=== PATIENT | female | born 1940 | race Caucasian/White ===

== ENCOUNTER 2018-07-07 11:03 | Outpatient (CLI) | payer MEDICARE, BC ==
[2018-07-07] MEDS ORDERED: LEVO25TA2 PO (12:01)
[2018-07-07] MEDS ORDERED: ACET-76 PO (12:01)
[2018-07-07] MEDS ORDERED: ATOR10TA PO (12:01)
[2018-07-07] MEDS ORDERED: CHOL3000 PO (12:01)
[2018-07-07] MEDS ORDERED: LOSA25TA25 PO (12:01)
[2018-07-07] MEDS ORDERED: UBID100C24 PO (12:01)
[2018-07-07] MEDS ORDERED: MAGNESIUM PO (12:01)
[2018-07-07] MEDS ORDERED: VITAMIN B6 PO (12:01)
[2018-07-07] MEDS ORDERED: FOLIC ACID PO (12:01)
[2018-07-07] MEDS ORDERED: VITA400C43 PO (12:01)
[2018-07-07] MEDS ORDERED: POTA99TA3 PO (12:01)
[2018-07-07] MEDS ORDERED: CYCL-259 PO (12:01)
[2018-07-07] MEDS ORDERED: DESO15CR21 TP (12:01)
[2018-07-07] MEDS ORDERED: CYAN1TAB29 PO (12:01)
[2018-07-07 12:23] LABS: MD NO; MEAN CORPUSCULAR HEMOGLOBIN 33.4 pg (27.0-34.8); MEAN CORPUSCULAR HGB CONC 34.3 g/dL (32.4-35.8)
[2018-07-07 12:41] LABS: BASOPHILS # (AUTO) 0.03 x10^3/uL (0-0.1); BASOPHILS % (AUTO) 1 % (0-1); EOSINOPHILS # (AUTO) 0.09 x10^3/uL (0-0.4); EOSINOPHILS % (AUTO) 2 % (1-7); LYMPHOCYTES # (AUTO) 1.25 x10^3/uL (1-3.4); LYMPHOCYTES % (AUTO) 21 % (22-44); MEAN CORPUSCULAR VOLUME 97.5 fL (80-100); MEAN PLATELET VOLUME 7.5 fL (7.4-10.4); MONOCYTES # (AUTO) 0.43 x10^3/uL (0.2-0.8); MONOCYTES % (AUTO) 7 % (2-9); NEUTROPHILS # (AUTO) 4.18 x10^3/uL (1.8-6.8); NEUTROPHILS % (AUTO) 70 % (42-75); PLATELET COUNT 243 x10^3/uL (130-400); RED BLOOD COUNT 4.26 x10^6/uL (3.82-5.3); RED CELL DISTRIBUTION WIDTH 13.8 % (9.6-15.2)
[2018-07-07 13:34] LABS: ALBUMIN 3.4 g/dL (3.4-5.0); CHLORIDE 108 mmol/L (98-107)
[2018-07-07 13:45] LABS: ALANINE AMINOTRANSFERASE 19 U/L (12-78); ALKALINE PHOSPHATASE 58 U/L (45-117); ANION GAP 8 mmol/L (5-15); BILIRUBIN,TOTAL 0.6 mg/dL (0.2-1.0); CREATININE 1.66 mg/dL (0.55-1.02); TOTAL PROTEIN 7.1 g/dL (6.4-8.2)
[2018-07-15] MEDS ORDERED: TRAM50TA2 PO (08:34)
== END 2018-07-07 23:59 | disposition home or self-care (01) ==
LOC: STAR 11:03
PROVIDERS: ATTEND Surgery
DX: Z01.818 Encounter for other preprocedural examination (principal); D37.4 Neoplasm of uncertain behavior of colon; N18.9 Chronic kidney disease, unspecified
CPT/HCPCS: 36415; 71046; 80053; 82378; 85025; 93005

== ENCOUNTER → 2020-05-20 | Outpatient (CLI) | payer MEDICARE, BC ==
[~2020-05-20] MED LIST: ACET-76 PO; ATOR10TA PO; CHOL3000 PO; CYAN1TAB29 PO; CYCL-259 PO; DESO15CR21 TP; FOLIC ACID PO; LEVO25TA2 PO; LOSA25TA25 PO; MAGNESIUM PO; POTA99TA3 PO; TRAM50TA2 PO; UBID100C24 PO; VITA400C43 PO; VITAMIN B6 PO
== END | disposition home or self-care (01) ==
LOC: CFH 07:43
PROVIDERS: ATTEND Surgery
DX: K57.30 Diverticulosis of large intestine without perforation or abscess without bleeding (principal); N28.1 Cyst of kidney, acquired; N26.1 Atrophy of kidney (terminal); M41.86 Other forms of scoliosis, lumbar region; M51.36 Other intervertebral disc degeneration, lumbar region
CPT/HCPCS: 74176